=== PATIENT | male | born 1995 | race Caucasian/White ===

== ENCOUNTER 2018-03-29 18:47 | Emergency (ER) | payer OTHER ==
[2018-03-29 19:11] VITALS: BP 107/57; PULSE 58; TEMP 98.2; BMI 28.1
--- NOTE | 2018-03-29 21:22 | PDOC ---
History of Present Illness - General Chief Complaint: Rash Stated Complaint: RASH Time Seen by Provider: 03/29/18 21:04 History Source: Patient Exam Limitations: No Limitations - History of Present Illness Initial Comments: CHIEF COMPLAINT: 22 y/o male here with a rash on his face since yesterday. HISTORY OF PRESENT ILLNESS: Patient states he had a aggarwal shave his face 2 days ago and noticed the rash yesterday on the right side of his chin and up along the right side of his chris where he was shaved. He denies itchiness, fever, discharge. Vital signs on arrival are within normal limits. REVIEW OF SYSTEMS: GENERAL/CONSTITUTIONAL: No fever/chills. No weakness. No weight change. MUSCULOSKELETAL: No joint or muscle swelling or pain. No neck or back pain. SKIN: +rash to right side of chirs NEUROLOGIC: No headache, vertigo, loss of consciousness, or loss of sensation. PHYSICAL EXAM: VITAL_SIGNS: within normal limits GENERAL_APPEARANCE: alert, cooperative, no obvious discomfort. MENTAL_STATUS: speech clear, oriented X 3, responds appropriately to questions. NEURO: motor intact and sensory intact in injured extremity. EXTREMITIES: good pulse in injured extremity, affected area on extremity has mild erythema, mild swelling, mild tenderness and no abrasions\lacerations. SKIN: Mild folliculitis to right side of chin and along hairline of right side of chris. No open pustules Past History - Past Medical History Allergies/Adverse Reactions: Allergies Allergy/AdvReac Type Severity Reaction Status Date / Time No Known Allergies Allergy Verified 03/29/18 19:08 Home Medications: Ambulatory Orders NK [No Known Home Medication] 03/29/18 COPD: No - Suicide/Smoking/Psychosocial Hx Smoking History: Unknown if ever smoked *Physical Exam - Vital Signs Last Vital Signs Temp Pulse Resp BP Pulse Ox 98.2 F 58 L 16 107/57 L 99 03/29/18 19:09 03/29/18 19:09 03/29/18 19:09 03/29/18 19:09 03/29/18 19:09 Moderate Sedation - Procedure Monitoring Vital Signs: Procedure Monitoring Vital Signs Temperature 98.2 F 03/29/18 19:09 Pulse Rate 58 L 03/29/18 19:09 Respiratory Rate 16 03/29/18 19:09 Blood Pressure 107/57 L 03/29/18 19:09 O2 Sat by Pulse Oximetry (%) 99 03/29/18 19:09 Medical Decision Making - Medical Decision Making A/P: 22 y/o male with mild folliculitis of the face after shaving. Suggested warm compresses, moisturizing and neosporin if bumps open. Instructed him to avoid shaving until resolved. The patient verbalizes understanding of all instructions, has no further questions and is awaiting discharge. *DC/Admit/Observation/Transfer Diagnosis at time of Disposition: Folliculitis - Discharge Dispostion Disposition: HOME Condition at time of disposition: Good - Referrals - Patient Instructions Printed Discharge Instructions: DI for Folliculitis Additional Instructions: Discharge Instructions: -Apply warm compresses to the area -AVoid scratching and shaving the affected area -If the bumps open, you can apply topical neosporin on them - Post Discharge Activity
== END 2018-03-29 21:34 | disposition home or self-care (01) ==
LOC: JERFT 18:47
DX: L73.9 Follicular disorder, unspecified (principal)
CPT/HCPCS: 99281-25

== ENCOUNTER 2018-06-10 18:23 | Emergency (ER) | payer OTHER ==
--- NOTE | 2018-06-10 18:41 | PDOC ---
Rapid Medical Evaluation Time Seen by Provider: 06/10/18 18:40 Medical Evaluation: Allergies Allergy/AdvReac Type Severity Reaction Status Date / Time No Known Allergies Allergy Verified 03/29/18 19:08 06/10/18 18:40 I performed a brief in-person evaluation of this patient. Chief complaint: Fell on left knee playing basketball Pertinent physical exam findings: Ambulatory with full weight bearing, able to extend completely and flex to 90 degrees I have ordered the following: None Patient to proceed to the ED for further evaluation. Discharge Disposition - Diagnosis Knee injury - Referrals - Patient Instructions - Post Discharge Activity
[2018-06-10 18:43] VITALS: BP 129/56; PULSE 89; TEMP 97.5; BMI 28.8
--- NOTE | 2018-06-10 19:48 | PDOC ---
History of Present Illness - General Chief Complaint: Pain, Acute Stated Complaint: KNEE PAIN Time Seen by Provider: 06/10/18 18:40 History Source: Patient Exam Limitations: No Limitations - History of Present Illness Initial Comments: 06/10/18 19:43 Best Contact: PCP: Dr. Stephanie Griffin/[place] Pmhx:None Pshx: None Allergies: NKDA FH:0 Social Hx: Cigarettes/ 0 Alcohol/ Social Drugs/ Marijuana/daily 22-year-old male presents to the emergency department complaining of left knee pain. Pain is described as 4/10 aching nonradiating intermittent discomfort. Patient states he is able to Hyperflex and hyper extending his knee but once in a while, he feels a tightening to the muscles. Patient states 1 year ago while playing basketball, he landed on his left knee but never got any medical attention. Today at approximately 1600 hrs., patient was playing basketball and went up for a rebound when he landed on his left foot causing pain to the left knee. Patient denies falling or causing any impact to his left knee. Patient denies any head, neck or back injuries, extremity numbness or tingling sensation , weakness. Patient's able to ambulate without difficulties. Past History - Past Medical History Allergies/Adverse Reactions: Allergies Allergy/AdvReac Type Severity Reaction Status Date / Time No Known Allergies Allergy Verified 06/10/18 18:40 Home Medications: Ambulatory Orders NK [No Known Home Medication] 03/29/18 COPD: No - Suicide/Smoking/Psychosocial Hx Smoking History: Never smoked Drug/Substance Use Hx: Yes (MARIJUANA) Review of Systems - Review of Systems Able to Perform ROS?: Yes Comments:: 06/10/18 19:46 CONSTITUTIONAL: Absent: fever, chills, diaphoresis, generalized weakness, malaise, loss of appetite HEENT: Absent: rhinorrhea, nasal congestion, throat pain, throat swelling, difficulty swallowing, mouth swelling, ear pain, eye pain, visual Changes CARDIOVASCULAR: Absent: chest pain, loss of consciousness, palpitations, irregular heart rate, peripheral edema RESPIRATORY: Absent: cough, shortness of breath, dyspnea with exertion, orthopnea, wheezing, stridor, hemoptysis GASTROINTESTINAL: Absent: abdominal pain, abdominal distension, nausea, vomiting, diarrhea, constipation, melena, hematochezia GENITOURINARY: Absent: dysuria, frequency, urgency, hesitancy, hematuria, flank pain, genital pain MUSCULOSKELETAL: +Left knee pain Absent: myalgia, arthralgia, joint swelling SKIN: Absent: rash, itching, pallor HEMATOLOGIC/IMMUNOLOGIC: Absent: easy bleeding, easy bruising, lymphadenopathy, frequent infections Is the patient limited Indonesian proficient: No *Physical Exam - Vital Signs Last Vital Signs Temp Pulse Resp BP Pulse Ox 97.5 F L 89 16 129/56 L 97 06/10/18 18:41 06/10/18 18:41 06/10/18 18:41 06/10/18 18:41 06/10/18 18:41 - Physical Exam Comments: 06/10/18 19:46 GENERAL: Well developed, well nourished. Awake and alert. No acute distress. HEENT: Normocephalic, atraumatic. PERRLA, EOMI. No conjunctival pallor. Sclera are non- icteric. Moist mucous membranes. Oropharynx is clear. NECK: Supple. Full ROM. No JVD. Carotid pulses 2+ and symmetric, without bruits. No thyromegaly. No lymphadenopathy. CARDIOVASCULAR: Regular rate and rhythm. No murmurs, rubs, or gallops. Distal pulses are 2+ and symmetric. PULMONARY: No evidence of respiratory distress. Lungs clear to auscultation bilaterally. No wheezing, rales or rhonchi. ABDOMINAL: Soft. Non-tender. Non-distended. No rebound or guarding. No organomegaly. Normoactive bowel sounds. MUSCULOSKELETAL Left knee F.R.O.M. Active hyperflexion and hyperextension w/o difficulties, pt ambulating and jumping without pain neg valrus/valgus neg ant/posterior drawer sign Left hip: F.R>O.M. Left ankle F.R.O.M. 2+ dp pulse Normal range of motion at all joints. No bony deformities or tenderness. No CVA tenderness. EXTREMITIES: No cyanosis. No clubbing. No edema. No calf tenderness. SKIN: Warm and dry. Normal capillary refill. No rashes. No jaundice. 06/10/18 19:48 Moderate Sedation - Procedure Monitoring Vital Signs: Procedure Monitoring Vital Signs Temperature 97.5 F L 06/10/18 18:41 Pulse Rate 89 06/10/18 18:41 Respiratory Rate 16 06/10/18 18:41 Blood Pressure 129/56 L 06/10/18 18:41 O2 Sat by Pulse Oximetry (%) 97 06/10/18 18:41 ED Treatment Course - RADIOLOGY Radiograph Interpretation: 06/10/18 19:48 Xr left knee 2v neg *DC/Admit/Observation/Transfer Diagnosis at time of Disposition: Knee injury Qualifiers: Encounter type: initial encounter Laterality: left Qualified Code(s): S89.92XA - Unspecified injury of left lower leg, initial encounter Left knee sprain Qualifiers: Encounter type: initial encounter Involved ligament of knee: other ligament Qualified Code(s): S83.8X2A - Sprain of other specified parts of left knee, initial encounter - Discharge Dispostion Condition at time of disposition: Stable Decision to Admit order: No - Referrals Referrals: Stephanie Hollins MD [Primary Care Provider] - - Patient Instructions Printed Discharge Instructions: DI for Knee Sprain Additional Instructions: Ice; 20 mins on alternating with 20 mins off for 48 hours while awake. Rest Elevate Follow up with your orthopedic surgeon or the one listed on the discharge form. Return to the ER for severe/persistent/worsening symptoms, extremity numbness/ tingling sensation. - Post Discharge Activity
== END 2018-06-10 21:49 | disposition home or self-care (01) ==
LOC: JERFT 18:23
DX: S83.8X2A Sprain of other specified parts of left knee, initial encounter (principal); W18.39XA Other fall on same level, initial encounter; Y93.67 Activity, basketball; Y92.310 Basketball court as the place of occurrence of the external cause; Y99.8 Other external cause status
CPT/HCPCS: 73560-TC-LT-FY; 99281-25

== ENCOUNTER 2023-09-11 01:38 | Emergency (ER) | payer SELFPAY ==
[2023-09-11 01:59] VITALS: BP 103/71; PULSE 58; RESP 18; TEMP 98; BMI 29.0
[2023-09-11] MEDS ORDERED: LIDOCAINE HCL 1%, 10 MG/ML (20ML VIAL) ONE (02:32)
[2023-09-11] MEDS ORDERED: DOXYCYCLINE HYCLATE 100 MG CAPSULE PO ONE (02:32)
[2023-09-11] MEDS: DOXYCYCLINE HYCLATE 100 MG CAPSULE PO ONE (02:37)
[2023-09-11] MEDS ORDERED: ERYTHROMYCIN 0.5% OPHTHALMIC OINTMENT 3.5 GM TUBE OU SCH ×2 (02:40→10:00)
[2023-09-11 02:42] LABS: EPI CELLS 24 /uL (0-25.1); HYALINE CASTS 8 /uL (0-3.1); URINE APPEARANCE CLEAR; URINE BACTERIA 23 /uL (0-1359); URINE BILIRUBIN NEGATIVE (NEGATIVE); URINE COLOR YELLOW; URINE GLUCOSE (UA) NEGATIVE (NEGATIVE); URINE KETONE NEGATIVE (NEGATIVE); URINE LEUK ESTERASE NEGATIVE (NEGATIVE); URINE NITRITE NEGATIVE (NEGATIVE); URINE PROTEIN TRACE (NEGATIVE); URINE RBC 85 /uL (0-23.9)
[2023-09-11] MEDS ORDERED: ERYTHROMYCIN 0.5% OPHTHALMIC OINTMENT 3.5 GM TUBE ONE (03:24)
[2023-09-11] MEDS: ERYTHROMYCIN 0.5% OPHTHALMIC OINTMENT 3.5 GM TUBE OU ONE (03:36)
[2023-09-11 07:38] LABS: URINE WBC 190.4 /uL (0-25.8)
[2023-09-11 16:02] LABS: SYPHILIS W/ RPR CONF NON-REACTIVE (NONREACTIVE)
[2023-09-11 16:28] LABS: HIV INTERPRETATION NEGATIVE (NEGATIVE)
== END 2023-09-11 03:55 | disposition home or self-care (01) ==
LOC: JER 01:38
DX: H10.89 Other conjunctivitis (principal); N34.2 Other urethritis; R30.0 Dysuria
CPT/HCPCS: 36415; 81003; 86704; 86708; 86780; 86803; 87086; 87340; 87389; 87491; 87517; 87591; 99283-25